=== PATIENT | male | born 1985 | race Caucasian/White ===

== ENCOUNTER 2016-11-10 07:15 | Emergency (ER) | payer BC, OTHER ==
[~2016-11-10] VITALS: Ht 180.3 cm; Wt 90.8 kg
[2016-11-10 07:19] VITALS: TEMP 36.5; Ht 180.3 cm; Wt 90.8 kg
[2016-11-10] MEDS ORDERED: SODIUM CHLORIDE 0.9% 1000ML 1,000 ML IV STA (07:53)
[2016-11-10] MEDS ORDERED: LORAZEPAM 2 MG/ML 1 ML VIAL IV STA (08:08)
[2016-11-10 08:12] LABS: BASO % 0.2 %; BASO ABS # 0.02 K/uL (0-0.2); COMPLETE YES; EOS % 1.2 %; HEMATOCRIT 44.1 % (42-52); IG% 0.2 %; LYMPH % 15.7 %; LYMPH ABS # 1.68 K/uL (1.2-3.4); MEAN CORPUSCULAR HEMOGLOBIN 30.2 pg (25-34); MEAN CORPUSCULAR HGB CONC 35.1 g/dl (32-36); MEAN PLATELET VOLUME 10.7 fL (7.4-10.4); MONO % 7.3 %; NEUT % 75.4 %; PLATELET COUNT 210 K/uL (130-400); RED BLOOD COUNT 5.13 M/uL (4.7-6.1); WHITE BLOOD COUNT 10.71 K/uL (4.8-10.8)
[2016-11-10 08:24] LABS: BUN/CREATININE RATIO 12.4 (10-20); CALCIUM 9.9 mg/dl (8.5-10.1); CREATININE 1.1 mg/dl (0.60-1.40); POTASSIUM 3.6 mmol/L (3.5-5.1)
[2016-11-10] MEDS ORDERED: SERT50TA PO (08:25)
[2016-11-10] MEDS ORDERED: OMEG10007 PO (08:25)
[2016-11-10] MEDS ORDERED: FLUT0.15 INH (08:25)
[2016-11-10] MEDS ORDERED: FEXO1TAB49 PO (08:25)
[2016-11-10] MEDS ORDERED: MULT-220 PO (08:25)
--- NOTE | 2016-11-10 08:49 | EMERGENCY ROOM VISIT NOTE ---
History First contact with patient: 07:24 Chief Complaint: RECTAL PAIN Stated Complaint: VOMITING,DIARRHEA Nursing Triage Summary: "I don't know if it's hemmorhoids or not." At midnight, "great pain in my stomach down in there. It was very hard to go to the bathroom. I sweat so bad. Stool became watery. Bright red blood this morning when I wiped." History of Present Illness The patient is a 31 year old male who presents to the Emergency Room with complaints of rectal bleeding. The patient states that last evening he ate a buffalo chicken sandwich which was very spicy. He later that evening had to strain to have a bowel movement. He then had abdominal cramping and a loose bowel movement. He had several more similar episodes of cramping and then a loose bowel movement throughout the night. This morning when he cut the abdominal cramping he had a bowel movement and there was blood in the bowel movement. He describes it as a "small amount". He also had some blood on the toilet paper when he wiped. The patient denies any nausea or vomiting. The patient denies any urinary symptoms of frequency, urgency, dysuria or hematuria. The patient denies any fever but states last night when he was having abdominal cramping he was sweating. The patient is here today due to the rectal bleeding. Review of Systems 10 system review was performed and was negative unless stated otherwise history of present illness. Past Medical/Surgical History Asthma, anxiety, tonsillectomy, adenoidectomy, depression Family History Diabetes, heart disease, hypertension, cancer Social History Smoking Status: Never Smoker Smokeless Tobacco Use: No Alcohol Use: occasionally Drug Use: none Marital Status: single Housing Status: lives alone Occupation Status: unemployed Current/Historical Medications Scheduled Fexofenadine Hcl (Mary Allergy), 1 TAB PO HS Fish Oil ([place]-3), 1 CAP PO HS Fluticasone Propionate (Nasal) (Flonase Allergy Relief), 1 SPRAY INH UD Multiple Vitamins W/ Minerals (Multi For Him), 1 TAB PO HS Sertraline (Zoloft), 50 MG PO HS Allergies Uncoded Allergies: N (Allergy, Unknown, 06/19/02) NKA (Allergy, Unknown, 06/19/02) SEASONAL (Allergy, Unknown, 06/19/02) Physical Exam Vital Signs Date Time Temp Pulse Resp B/P (MAP) Pulse Ox O2 Delivery O2 Flow Rate FiO2 11/10/16 07:19 36.5 98 20 123/79 100 Room Air Physical Exam GENERAL: 31-year-old white male appears in no acute distress. MENTAL Status: Alert and oriented 3. MOUTH: Mucosa is moist. NECK: Supple, no lymphadenopathy noted. No carotid bruits noted. LUNGS: Clear auscultation without wheezes rales or rhonchi. CARDIAC: Regular rate and rhythm without murmur. Pulses is full and equal throughout. BACK: No CVA tenderness noted. ABDOMEN: Positive bowel sounds all 4 quadrants. Soft, nontender to palpation without organomegaly or masses. Rectal: No external masses noted. Anal sphincter intact. No palpable internal masses. Stool guaiac was positive. EXTREMITIES: No cyanosis or edema noted. Medical Decision & Procedures Laboratory Results 11/10/16 08:00 Red Blood Count 5.13, Mean Corpuscular Volume 86.0, Mean Corpuscular Hemoglobin 30.2, Mean Corpuscular Hemoglobin Concent 35.1, Mean Platelet Volume 10.7, Neutrophils (%) (Auto) 75.4, Lymphocytes (%) (Auto) 15.7, Monocytes (%) (Auto) 7.3, Eosinophils (%) (Auto) 1.2, Basophils (%) (Auto) 0.2, Neutrophils # (Auto) 8.08, Lymphocytes # (Auto) 1.68, Monocytes # (Auto) 0.78, Eosinophils # (Auto) 0.13, Basophils # (Auto) 0.02 11/10/16 08:00 Test 11/10/16 08:00 White Blood Count 10.71 K/uL (4.8-10.8) Red Blood Count 5.13 M/uL (4.7-6.1) Hemoglobin 15.5 g/dL (14.0-18.0) Hematocrit 44.1 % (42-52) Mean Corpuscular Volume 86.0 fL (80-100) Mean Corpuscular Hemoglobin 30.2 pg (25-34) Mean Corpuscular Hemoglobin Concent 35.1 g/dl (32-36) Platelet Count 210 K/uL (130-400) Mean Platelet Volume 10.7 fL (7.4-10.4) Neutrophils (%) (Auto) 75.4 % Lymphocytes (%) (Auto) 15.7 % Monocytes (%) (Auto) 7.3 % Eosinophils (%) (Auto) 1.2 % Basophils (%) (Auto) 0.2 % Neutrophils # (Auto) 8.08 K/uL (1.4-6.5) Lymphocytes # (Auto) 1.68 K/uL (1.2-3.4) Monocytes # (Auto) 0.78 K/uL (0.11-0.59) Eosinophils # (Auto) 0.13 K/uL (0-0.5) Basophils # (Auto) 0.02 K/uL (0-0.2) RDW Standard Deviation 39.1 fL (36.4-46.3) RDW Coefficient of Variation 12.3 % (11.5-14.5) Immature Granulocyte % (Auto) 0.2 % Immature Granulocyte # (Auto) 0.02 K/uL (0.00-0.02) Anion Gap 10.0 mmol/L (3-11) Est Creatinine Clear Calc Drug Dose 110.1 ml/min Estimated GFR () 101.7 Estimated GFR (Non- 87.7 BUN/Creatinine Ratio 12.4 (10-20) Calcium Level 9.9 mg/dl (8.5-10.1) Total Bilirubin 0.8 mg/dl (0.2-1) Direct Bilirubin 0.1 mg/dl (0-0.2) Aspartate Amino Transf (AST/SGOT) 19 U/L (15-37) Alanine Aminotransferase (ALT/SGPT) 25 U/L (12-78) Alkaline Phosphatase 72 U/L (45-117) Total Protein 7.5 gm/dl (6.4-8.2) Albumin 4.4 gm/dl (3.4-5.0) Lipase 155 U/L (73-393) Medications Administered Medications (Trade) Dose Ordered Sig/Micaela Route Start Time Stop Time Status Last Admin Dose Admin Sodium Chloride 1,000 ml @ 999 mls/hr Q1H1M STAT IV 11/10/16 07:53 11/10/16 08:53 11/10/16 08:02 999 MLS/HR Lorazepam (Ativan Inj) 1 mg NOW STAT IV 11/10/16 08:08 11/10/16 08:09 DC 11/10/16 08:38 1 MG Procedure Anoscopy was performed using an anoscope. In the scope was lubricated with K-Y jelly. It was inserted into the rectum. There was a small fissure at the 9 o' clock position with active bleeding. There was a small thrombosed hemorrhoid at the 5 o'clock position without any active bleeding. Patient tolerated procedure well. ED Course The patient was evaluated. Anoscopy was performed as above. IV access was obtained. The patient was given 1 L normal saline. CBC differential, renal profile, LFTs and lipase levels were ordered. The patient was offered pain medication but declined at this time. The patient later told the nurse that he was under a lot of stress at work and this was making it worse. And was requesting antianxiety medication. He states he takes it on an as-needed basis at home. The patient was given Ativan 1 mg IV. Labs are reviewed and were unremarkable. The patient was reevaluated was feeling much better. The patient was discharged home with a family member driving. Medical Decision Differential diagnosis include GI bleed, peptic ulcer disease, bleeding hemorrhoid, fissure Impression Primary Impression: Anal fissure Additional Impression: Abdominal cramping Departure Information Dispostion Home / Self-Care Condition GOOD Referrals Rober Angela M.D. (MEDICAL) (PCP) Forms HOME CARE DOCUMENTATION FORM, IMPORTANT VISIT INFORMATION, WORK / SCHOOL INSTRUCTIONS Patient Instructions [employer] Additional Instructions Recommend MiraLAX daily until bowels become regular and soft. Minimize dairy products and increase fiber in your diet. Avoid spicy foods. If your symptoms persist or worsen recommend follow-up with your family doctor for further evaluation. Problem Qualifiers
[2016-11-10 09:01] VITALS: BP 112/70; PULSE 75; O2SAT 99
== END 2016-11-10 09:02 | disposition home or self-care (01) ==
LOC: C.EDB 07:17 → MERGE 07:17 → C.EDA 09:02
DX: K60.2 Anal fissure, unspecified (principal); R10.9 Unspecified abdominal pain; J45.909 Unspecified asthma, uncomplicated; F41.9 Anxiety disorder, unspecified; F32.9 Major depressive disorder, single episode, unspecified; Z83.3 Family history of diabetes mellitus; Z82.49 Family history of ischemic heart disease and other diseases of the circulatory system; Z80.9 Family history of malignant neoplasm, unspecified; Z79.899 Other long term (current) drug therapy; K64.5 Perianal venous thrombosis